=== PATIENT | male | born 1980 | race Two or more races ===

== ENCOUNTER 2024-12-16 01:27 | Inpatient (IN) | payer MEDICAID, SELFPAY ==
[2024-12-16] VITALS (12 sets, daily range): BP systolic 99–139; BP diastolic 61–98; PULSE 86–98; RESP 12–18; TEMP 36.7–37.6; O2SAT 93–99; BMI 28.3
--- NOTE | 2024-12-16 03:10 | EDRME_ITS ---
Rapid Medical Screening Exam RME Arrival date/time: 12/16/24 01:27 Chief Complaint: Medical Clearance Time Seen by Provider: 12/16/24 02:54 Vital signs: Vital Signs Temperature 98.7 F 12/16/24 01:46 Pulse Rate 90 12/16/24 01:46 Respiratory Rate 18 12/16/24 01:46 Blood Pressure 134/90 H 12/16/24 01:46 Pulse Oximetry (%) 96 12/16/24 01:46 Oxygen Delivery Method Room Air 12/16/24 01:46 Vital signs reviewed by provider: Yes RME Narrative: 44-year-old male presents to the ED via [employer] [place] [employer] for medical clearance for an elevated blood sugar of 342. Apparently he has been cited and released. Patient is complaining of right foot pain. A quick physical exam reveals right fourth toe with necrosis. Right foot is dusky in appearance with delayed capillary refill. I have greeted and performed a focused initial assessment of this patient. A comprehensive ED assessment and evaluation of the patient, analysis of all test results, and completion of the medical decision making process will be conducted by additional ED providers.
--- NOTE | 2024-12-16 03:15 | PC.NURSE ---
PT INTO ROOM 16 FROM LOBBY. FROM TRIAGE NOTE PT WAS BIB [employer] FOR [employer]PER[employer]YCEMIA MEDICAL CLEARANCE. PT WAS RELEASED BY PD AND LEFT IN ER LOBBY. PT PRESENTS TO THE ER DISHEVELED, COVERED IN URINE AND FECES. PT STATES HE WAS LAYING ON THE FLOOR IN FRONT OF A STORE, FEELING WEAK WHEN OFFICER ARRESTED HIM. PT STATES HE IS HOMELESS AND HAS NOT HAD AN APPETITE OR HAS BEEN DRINKING MUCH FLUIDS. PT WALKED WITH AN UNSTEADY GAIT, DENIES ALCOHOL OR DRUGS. PT PLACED ON CARDIAC MONITORING. VS TAKEN. IV PLACED. INFORMED OF PT'S UNSTEADY GAIT. BLACKED WOUND NOTED ON RIGHT FOURTH DIGIT TOE. PT STATES HE IS DM. PT [id number].
--- NOTE | 2024-12-16 03:15 | XR_ITS ---
Examination: Foot, right, 3 views Technique: AP, oblique, lateral views foot, 3 views Date and time of exam: December 16, 2024 at 0519 hours INDICATIONS: Nonhealing ulcer right foot FINDINGS: History amputation midportion proximal phalanx first digit Apparent bone production at the level of the distal phalanx fourth digit No sawyer cortical bone destruction Impression : No sawyer cortical bone destruction Consider MRI for without contrast follow-up to best assess for osteomyelitis, as clinically warranted
--- NOTE | 2024-12-16 03:17 | EDNOTE_ITS ---
ED Extremity Problem RME/HPI General Chief complaint: Medical Clearance Stated complaint: MEDICAL CLEARANCE Time Seen by Provider: 12/16/24 02:54 Arrival date/time: 12/16/24 01:27 RME / HPI RME / HPI Narrative: 44-year-old male presents to the ED via [employer] for medical clearance for an elevated blood sugar of 342. Apparently he has been cited and released. Patient is complaining of right foot pain. A quick physical exam reveals right fourth toe with necrosis. Right foot is dusky in appearance with delayed capillary refill. I have greeted and performed a focused initial assessment of this patient. A comprehensive ED assessment and evaluation of the patient, analysis of all test results, and completion of the medical decision making process will be conducted by additional ED providers. DR. MICHAEL MAIN ED EVALUATION: 44 y/o male with Hx of Type II DM BIB [facility] presents to ED c/o elevated blood sugar. Denies fever, nausea, and vomiting. Related Data Allergies Allergy/AdvReac Type Severity Reaction Status Date / Time No Known Allergies Allergy Verified 10/26/21 22:56 Review of Systems Review of Systems Systems Reviewed: All systems reviewed, normal except as documented Past Medical History Past Medical History ENDOCRINE: Positive Diabetes Mellitus Type 2 Social History SMOKING STATUS: Current some day smoker ED Exam Narrative Physical exam: GENERAL APPEARANCE: alert and oriented x 4, well-developed, well-nourished, no acute distress, patient appears to have poor hygeine VITALS: All vitals were reviewed and the pulse ox is 96% on room air, which is normal according to my interpretation. HEENT: Normocephalic, atraumatic; pupils equal, round, reactive to light; EOMI; mucous membranes pink, moist; oropharynx clear NECK: Supple LUNGS: CTABL; no wheezes, no rales, no rhonchi HEART: Regular rate, regular rhythm; normal S1, S2; no murmurs ABDOMEN: non distended; normal BS; soft, no tenderness, no guarding, no rebound; no masses, no organomegaly, no hernia BACK: no CVA tenderness EXTREMITIES: necrosis to plantar aspect of right 4th digit; ulceration to right 3rd digit; no edema NEUROLOGIC: awake; alert and oriented x4; cranial nerves II-XII grossly intact; no focal sensory or motor deficits PSYCHIATRIC: appropriate mood and affect SKIN: warm, dry, normal color; no rashes Course Quality Measures none Orders Category Date Time Status CT head/brain wo con Stat Exams 12/16/24 04:47 Taken XR foot comp RT min 3V Stat Exams 12/16/24 03:15 Taken A1C [Glycohemoglobin w (eAG)] Stat Lab 12/16/24 03:41 Completed Alcohol, Blood Medical Stat Lab 12/16/24 03:41 Completed Blood Culture (Lab) Stat Lab 12/16/24 03:41 Received CBC Stat Lab 12/16/24 03:41 Completed CK [Creatine Kinase] Stat Lab 12/16/24 03:41 Completed CMP [Comprehensive Metabolic Panel] Stat Lab 12/16/24 03:41 Completed Drug Screen,Urine Stat Lab 12/16/24 05:30 Received ESR [Sed Rate (ESR)] Stat Lab 12/16/24 03:41 Completed Lipase Stat Lab 12/16/24 03:41 Completed UA, C/S IF [Urinalysis, C/S if Indicated] Stat Lab 12/16/24 05:30 Completed Piper/Tazo 3.375 gm Premix [Zosyn] Med 12/16/24 04:27 Discontinued 3.375 gm in 50 ml IV X1 Piper/Tazo Inj [Zosyn Inj] 4.5 gm Med 12/16/24 03:14 Discontinued Sodium Chloride 0.9% (Pop) [NS 0.9% mini bag] 100 ml IV X1 Sodium Chloride 0.9% 1000 ml [Ns] 1,000 ml Med 12/16/24 04:46 Discontinued IV 999 mls/hr Sodium Chloride 0.9% 1000 ml [Ns] 1,000 ml Med 12/16/24 05:04 Active IV 999 mls/hr Vancomycin Inj 1,000 mg Med 12/16/24 03:13 Discontinued Sodium Chloride 0.9% 250 ml [Ns] 250 ml IV X1 Vancomycin Inj 1,000 mg Med 12/16/24 04:27 Active Sodium Chloride 0.9% 250 ml [Ns] 250 ml IV X1 Vital Signs Vital signs: Vital Signs Temperature 98.7 F 12/16/24 01:46 Pulse Rate 90 12/16/24 01:46 Respiratory Rate 18 12/16/24 01:46 Blood Pressure 134/90 H 12/16/24 01:46 Pulse Oximetry (%) 96 12/16/24 01:46 Oxygen Delivery Method Room Air 12/16/24 01:46 Extremity Problem MDM Narrative MDM Narrative:: Scribe Attestation: Karen Burch, am scribing for and in the presence of Dr. Michael. Provider Notation: Although this document has been carefully reviewed, there may still be some phonetic and other typographical errors.? These errors are purely grammatical due to imperfections in the software program and should not be construed in any way to? compromise the substance of the patient's medical care during this visit. Patient data External records reviewed:: [facility] [place] previous records (No recent ED records available for review.) Clinical information provided by:: patient Social determinants that could affect healthcare access:: alcohol use Patient has the following chronic illnesses:: Type II DM How is presenting disease/condition affected by chronic disease/condition?: exacerbated by Evaluation data The following diagnostics were reviewed and interpreted by me:: lab results and radiology exam(s) Lab and/or radiology exams considered but not ordered:: None Interpretation Summary: RADIOLOGY Right Foot X-Ray: Pending official radiology report. Head/Brain CT: Pending official radiology report. Medications / Prescriptions Medications or Prescriptions considered but not ordered:: None Medication administrations:: Medication Administration History Vancomycin HCl 1,000 mg/ (Sodium Chloride) 250 mls @ 150 mls/hr IV X1 ONE Stop: 12/16/24 06:06 Last Admin: 12/16/24 05:14 Dose: 150 mls/hr Documented By: JOSELINE Sodium Chloride (Ns) 1,000 mls @ 999 mls/hr IV .Q1H1M ONE Stop: 12/16/24 06:04 Last Admin: 12/16/24 05:13 Dose: 999 mls/hr Documented By: JOSELINE Discontinued Medications Vancomycin HCl 1,000 mg/ (Sodium Chloride) 250 mls @ 150 mls/hr IV X1 ONE Stop: 12/16/24 04:52 Last Admin: 12/16/24 03:23 Dose: Not Given Documented By: MAXWELL Non-Admin Reason: Cancelled by Provider Piperacillin Sod/Tazobactam (Sod 4.5 gm/ Sodium Chloride) 100 mls @ 200 mls/hr IV X1 ONE Stop: 12/16/24 03:43 Last Admin: 12/16/24 03:23 Dose: Not Given Documented By: MAXWELL Non-Admin Reason: Cancelled by Provider Piperacillin/Tazobactam/Dextrose (Zosyn) 3.375 gm in 50 mls @ 100 mls/hr IV X1 ONE Stop: 12/16/24 04:56 Last Admin: 12/16/24 05:13 Dose: 100 mls/hr Documented By: JOSELINE Sodium Chloride (Ns) 1,000 mls @ 999 mls/hr IV .Q1H1M ONE Stop: 12/16/24 05:46 Last Admin: 12/16/24 05:13 Dose: 999 mls/hr Documented By: JOSELINE See above Consultations Consultation(s) initiated? (list below): No Diagnosis Extremity Problem Differential Diagnosis: gout, cellulitis and other (Osteomyelitis) Most likely diagnosis given after review of the tests above:: AMS, Hyperglycemia, Osteomyelitis Admission Indicated Admission indicated?: not indicated Explain why admission is indicated or not indicated:: Pending UA and CT. Admission Request Was there a request for admission?: No Disposition Plan Disposition Plan: other (specify) (Signed-out to Dr. Fermin at 6 AM.) Discharge Plan Prescriptions/Referrals Referrals: No Primary/Family,Physician [Primary Care Provider] - In 1 week Problem List Clinical Impression: AMS (altered mental status), Hyperglycemia, Osteomyelitis Patient/Caregiver Discharge Instructions Print Language: Beninese
[2024-12-16 03:53] LABS: Basophils # (Auto) 0.0 Thou/mm3 (0.0-0.2); Basophils % (Auto) 0 % (0-2.5); Eosinophils # (Auto) 0.0 Thou/mm3 (0.0-0.5); Eosinophils % (Auto) 1 % (0-10); Hematocrit 30.1 % (41.0-53.0); Hemoglobin 11.2 g/dL (13.5-16.0); Immature Granulocytes Auto 0.03 Thou/mm3 (0.00-0.00); Lymphocytes # (Auto) 1.7 Thou/mm3 (1.0-4.8); Lymphocytes % (Auto) 20 % (10-50); Mean Corpuscular HGB Conc 37.2 g/dl (31.0-37.0); Mean Corpuscular Hemoglobin 29.0 pg (25.0-35.0); Mean Corpuscular Volume 78 fL (80-100); Monocytes # (Auto) 0.3 Thou/mm3 (0.0-0.8); Monocytes % (Auto) 4 % (0-12); Neutrophils # (Auto) 6.3 Thou/mm3 (1.8-7.7); Neutrophils % (Auto) 75 % (37-80); Nucleated Red Blood Cell # 0.00 Thou/mm3 (0.00-0.00); Nucleated Red Blood Cell % 0 /100 WBC (0); Platelet Count 367 Thou/mm3 (140-440); RDW Standard Deviation 34.0 fL (35.1-43.9); Red Blood Count 3.86 Miln/mm3 (4.50-5.90); White Blood Count 8.4 Thou/mm3 (3.8-10.6)
[2024-12-16 04:07] LABS: Sed Rate (ESR) 93 mm/hr (0-15)
[2024-12-16 04:34] LABS: Alanine Aminotransferase 17 U/L (10-49); Albumin, Serum 4.1 gm/dL (3.5-5.0); Albumin/Globulin Ratio 1.0 (1.2-2.2); Alcohol, Blood Medical < 3.0 mg/dL (0-10.0); Alkaline Phosphatase 117 U/L (46-116); Anion Gap 11 (7-16); Aspartate Amino Transferase 19 U/L (0-34); BUN/Creatinine Ratio 12 Ratio (12-20); Bilirubin,Total 0.5 mg/dL (0.3-1.2); Blood Urea Nitrogen 14 mg/dL (9-23); Calcium 9.3 mg/dL (8.3-10.6); Calcium (Corrected) 9.3 mg/dL (8.5-10.1); Carbon Dioxide 25.4 mMol/L (20.0-31.0); Chloride 93 mMol/L (98-107); Creatinine (Component) 1.2 mg/dL (0.6-1.3); Estimated Creatinine Clearance 71.7 mL/min (>60); Globulin 4.2 gm/dL (2.3-3.5); Glucose 383 mg/dL (74-106); Lipase 26 U/L (12-53); Osmolality,Calculated 275 (275-295); Potassium 4.1 mMol/L (3.4-5.1); Sodium 129 mMol/L (136-145); Total Protein 8.3 gm/dL (5.7-8.2); eGFR > 60 See Note
--- NOTE | 2024-12-16 04:47 | XR_ITS ---
Examination: CT brain head without contrast. 2-D sagittal coronal reconstructions Date and time of exam:December 16, 2024 0519 hours INDICATIONS: Onset altered mental status today CTDI: vol (mGy):84.4 DLP: (mGycm):1047 Technique: Multiple CT axial sections of the brain have been obtained, 5 mm slice thickness. Contrast has not been administered. 2-D sagittal, coronal reconstructions have been obtained Low dose protocols were performed. One or more of the following dose reduction techniques were used; automated exposure control, adjustment of the mA and/or KV according to patient size, use of iterative reconstruction technique. Findings: No significant ventricular enlargement. Intra-axial or extra-axial hemorrhage density is not seen. No mass effect or midline shift Basal cisterns are not remarkable. Fourth ventricle is midline. Cranial vault intact. Impression: Negative for acute hemorrhage, mass effect or midline shift
[2024-12-16 04:53] LABS: Glucose Estimated Average 338 mg/dL (80-131); Hemoglobin A1C 13.4 % Hgb (4.8-6.0)
[2024-12-16] MEDS: SODIUM CHLORIDE 0.9% 1000 ML 1,000 ML 999 ML IV ×2 (05:13)
[2024-12-16] MEDS: PIPER/TAZO 3.375 GM PREMIX 3.375 GM/50 ML BAG IV (05:13)
[2024-12-16] MEDS: Vancomycin Inj 1,000 MG in SODIUM CHLORIDE 0.9% 250 ML 250 ML 150 MG IV (05:14)
[2024-12-16 05:21] LABS: Creatine Kinase 112 U/L (34-171)
[2024-12-16 05:44] LABS: Collection Type, Urine Clean Catch; Squamous Epithelial Cell,Urine 0 /hpf (0-5)
[2024-12-16 05:48] LABS: Bilirubin,Urine Negative (Negative); Blood,Urine Trace (Negative); Clarity,Urine Clear (Clear/Hazy); Color,Urine Lt-Yellow (Lt Yel-Yel); Culture Indicated,Urine Not Indicated; Glucose, Urine 4+ (Negative); Ketones,Urine 1+ (Negative); Leukocyte Esterase,Urine Negative (Negative); Nitrite,Urine Negative (Negative); PH,Urine 6.0 (5.0-7.0); Protein,Urine Negative (Neg - Trace); RBC,Urine 14 /hpf (0-3); Specific Gravity,Urine 1.034 (1.001-1.035); Transitional Epi Cells,Urine 2 /hpf (0-5); Urobilinogen,Urine Negative mg/dL (0.0-1.0); WBC,Urine 1 /hpf (0-5)
--- NOTE | 2024-12-16 05:52 | PRELIM_ITS ---
CT scan of the head without intravenous contrast (axial sections with sagittal and coronal reformats). December 16, 2024 0519 hours Clinical History: AMS Findings: No evidence of intracranial hemorrhage, mass effect or midline shift. The ventricles and CSF spaces are unremarkable. The calvarium is unremarkable. The mastoid air cells and the visualized paranasal sinuses are clear. Impression: No evidence of intracranial hemorrhage, mass effect or midline shift. Report Electronically Signed By: Ricardo Prado 12/16/2024 5:52:14 AM [EST]
[2024-12-16 05:56] LABS: Amphetamine/Methamp Scrn,U Positive (Negative); Barbiturate Screen,Urine Negative (Negative); Benzodiazepines Screen,Urine Negative (Negative); Benzoylecgonine Screen, Ur Negative (Negative); Fentanyl Screen,Urine Negative (Negative); Opiate Screen,Urine Negative (Negative); THC Screen,Urine Negative (Negative)
--- NOTE | 2024-12-16 06:32 | PD.EDADDENDU ---
Emergency Room Addendum Addendum Narrative: 0600: Care assumed from Dr. Hoang, the previous shift emergency physician. Past medical, surgical, social and family history reviewed. Vitals and home medications reviewed. I will assume the care of the patient at this time, pending CT report and reassessment. Please refer to the emergency department record for history and examination from initial visit.?The following addendum documentation note is intended to reflect any pending information, findings, or radiology results not included in the patient?s initial chart. Nursing notes reviewed by me. Vital signs reviewed by me. [place] medical records reviewed by me. Patient was last evaluated here on 10/27/2021 for hyperglycemia. 0623: 44 year old male with history of diabetes, medication noncompliance, and methamphetamine use presented to the ED initially brought in by [facility] for medical clearance for incarceration. Patient states he used meth 3 days ago and since then has been awake. States yesterday I couldn't walk anymore and stopped at a gas station to rest and was arrested. States he has had difficulty walking for ~ 1 week. Per RN, while in the ED the patient had unsteady gait and was hypotensive 62/40 with MAP 48. Prior to start of my shift, the patient was given 2L of IV fluids, Zosyn, and Vancomycin for the diabetic foot wound. Blood pressure during my examination is 146/87 and HR 97. While standing the blood pressure is 73/53 and HR 99. On my examination, there is a diabetic foot ulceration to the right fourth toe. 0735: I spoke with resident Dr. Valentine working with Dr. Esteban. Discussed patients PMHx, HPI, ED course, exam findings, labs, and radiology results. The hospitalist agree to accept the patient for admission. 0814: I spoke with surgeon Dr. Soria. Discussed patients PMHx, HPI, ED course, exam findings, labs, and radiology results. She agrees to consult. DISPOSITION: Admit DIAGNOSIS: Diabetic foot wound, osteomyelitis, hyperglycemia RADIOLOGY Ordering Physician: Date of Service: Procedure(s): Accession Number(s): cc: ~ CT scan of the head without intravenous contrast (axial sections with sagittal and coronal reformats). December 16, 2024 0519 hours Clinical History: AMS Findings: No evidence of intracranial hemorrhage, mass effect or midline shift. The ventricles and CSF spaces are unremarkable. The calvarium is unremarkable. The mastoid air cells and the visualized paranasal sinuses are clear. Impression: No evidence of intracranial hemorrhage, mass effect or midline shift. Report Electronically Signed By: Ricardo Prado 12/16/2024 5:52:14 AM [EST]
[2024-12-16] MEDS: SODIUM CHLORIDE 0.9% 500 ML 500 ML 999 ML IV ×2 (08:34→19:42)
[2024-12-16] MEDS: DOXYCYCLINE 100 MG TABLET PO ×2 (08:51→20:42)
--- NOTE | 2024-12-16 10:03 | PD.SURCONS ---
HPI Consult details History of present illness: 44M with DM who was brought to ER by PD apparently for loitering. Pt was having pain of the right foot which he reported began 1 week ago. Initially in ER pt was hypotensive but that has now improved with IVF. He has normal WBC but A1c 13.4 and Xray negative for osteomyelitis Review of Systems Review of Systems ROS Unobtainable: All systems reviewed & no additional complaints except as documented Meds Home Medications and Allergies Allergies Allergy/AdvReac Type Severity Reaction Status Date / Time No Known Allergies Allergy Verified 10/26/21 22:56 Exam Vital Signs Temp Pulse Resp BP Pulse Ox O2 Del Method 98.9 F 90 13 139/91 H 98 Room Air 12/16/24 05:28 12/16/24 09:01 12/16/24 09:01 12/16/24 09:01 12/16/24 09:01 12/16/24 09:01 Constitutional Constitutional: no acute distress Routine Respiratory Exam Respiratory: Present no resp distress Routine Extremities Exam Comments: right fourth toe with mild erythema at the dorsal aspect, no fluctuance, necrotic ulcer of the plantar aspect Results Results: Laboratory Laboratory results: results reviewed Results: Imaging Imaging narrative: Foot xray reviewed Assessment & Plan Plan 44M with DMII, A1c 13.4 presenting with an ulcer of the right fourth toe. As there is no osteomyelitis or signs of abscess he does not require surgical intervention but will benefit from abx and wound care Please reconsult as needed
--- NOTE | 2024-12-16 10:15 | PC.NURSE ---
ATTEMPTED TO CALL REPORT AND NURSE UNAVAILABLE
[2024-12-16] MEDS: INSULIN LISPRO (AdmeLOG) 1 UNIT/0.01 ML UNIT SC ×2 (12:17→20:42)
--- NOTE | 2024-12-16 14:42 | ESHP_ITS ---
<Statement entered by Antonio Valentine MD - 12/16/24 15:51> In summary: 44-year-old homeless male, with PMHx of poorly controlled diabetes, medication noncompliance, METHAMPHETAMINE use who was brought to the ED by police with altered mental status. Admitted for diabetic foot ulcer/abscess of right foot requiring IV ANTIBIOTICS. CXR was negative for osteomyelitis. Aseptic on presentation. No surgical intervention from general surgery perspective. Will continue with IV ANTIBIOTICS. Additionally, he had hyperosmotic hyponatremia, corrected sodium 134, GLUCOSE 383, A1c 13.4. He will need aggressive glycemic management outpatient, however, may be difficult given homelessness situation. Case was discussed with attending physician. Antonio Valentine DO PGY II This document was transcribed using voice recognition technology. Minor inaccuracies may be present. Documentation for date of: 12/16/24 HPI History of Present Illness Chief complaint: Altered mental status History of present illness: A 44 year old male with a pmh of diabetes, medical noncompliance, and methamphetamine use presents for altered mental status. He was also found to have an elevated blood sugar, weakness, and foot pain. He confirms feeling some confusion this morning but that has resolved. As for the foot pain, he has had a 3/10 pain in his right foot when he walks, and a generalized weakness on admission that he states is currently resolving. Additionally, he confirms his last methamphetamine use was 3 days ago and states his route of ingestion is smoking. He denies any fevers, chills, needle use, chest pain, or sob. ED Course:vitals Temp: 98.7 HR: 90 RR: 18 BP 134/90 SPO2: 96 Physical exam was normal aside from necrosis to the plantar aspect of right 4th digit; ulceration to right 3rd digit. Labs found a Hgb of 11.2, Hct 20.1, Cl 93, serum glucose 383, A1c 13.4, Alk phos 117, total protein 8.3, Globulin 4.2, UA: 4+ glu, 1+ Ketones, 14 RBC Urine tox: positive for amphetamine Imaging: Foot xray: No sawyer cortical bone destruction, History amputation midportion proximal phalanx first digit, Apparent bone production at the level of the distal phalanx fourth digit Head CT:Negative for acute hemorrhage, mass effect or midline shift Patient was given 3.375 g zosyn, NS 1L fluid bolus x2, NS 500mls bolus, Vancomycin 1g, Doxycycline 100mg BID, pantaprazole 40 mg IVP qday Review of Systems Review of Systems Systems Reviewed: All systems reviewed, normal except as documented Past Medical History Past Medical History ENDOCRINE: Positive Diabetes Mellitus Type 2 (On insulin) Social History SMOKING STATUS: Never smoker SUBSTANCE USE: amphetamines SUBSTANCE LAST USED: days (ago) (3) ALCOHOL: Never HOUSING: Homeless Exam Vital Signs Temp Pulse Resp BP Pulse Ox O2 Del Method 98.5 F 96 17 126/86 H 98 Room Air 12/16/24 11:59 12/16/24 11:59 12/16/24 11:59 12/16/24 11:59 12/16/24 11:59 12/16/24 11:59 Narrative Exam General: A&O x4, NAD, HEENT: Normocephalic, atraumatic, moist mucous membranes Cardio: Normal S1, S2, No murmurs rubs or gallops, Pulm:Lungs clear to auscultation bilaterally, no wheezes, crackles Abdominal:Abdomen is soft, nontender to palpation with no guarding or rigidity MSK: necrosis to plantar aspect of right 4th digit; ulceration to right 3rd digit; no edema, Normal ROM Neuro: A&O x4, cranial nerves 2-12 grossly intact with no focal deficits Results: Labs 12/17/24 04:43 12/17/24 04:43 Labs: Short CBC 12/16/24 Range/Units 03:41 WBC 8.4 (3.8-10.6) Thou/mm3 Hgb 11.2 L (13.5-16.0) g/dL Hct 30.1 L (41.0-53.0) % Plt Count 367 (140-440) Thou/mm3 BMP 12/16/24 03:41 Sodium 129 L Potassium 4.1 Chloride 93 L Carbon Dioxide 25.4 BUN 14 Creatinine 1.2 Glucose 383 H Calcium 9.3 Cardiac Enzymes 12/16/24 Range/Units 03:41 Total Creatine Kinase 112 (34-171) U/L Liver Function 12/16/24 Range/Units 03:41 Total Bilirubin 0.5 (0.3-1.2) mg/dL AST 19 (0-34) U/L ALT 17 (10-49) U/L Alkaline Phosphatase 117 H (46-116) U/L Albumin 4.1 (3.5-5.0) gm/dL Urine 12/16/24 Range/Units 05:30 Urine Color Lt-Yellow (Lt Yel-Yel) Urine Clarity Clear (Clear/Hazy) Urine pH 6.0 (5.0-7.0) Ur Specific [place] 1.034 (1.001-1.035) Urine Protein Negative (Neg - Trace) Urine Glucose (UA) 4+ A (Negative) Quality Measures Quality Measures none Medications Home Medications and Allergies Home Medications ?Medication ?Instructions ?Recorded ?Confirmed ?Type sulfamethoxazole 800 1 tab PO Q12H 12/16/2412/16 History mg-trimethoprim 160 mg tablet Allergies Allergy/AdvReac Type Severity Reaction Status Date / Time No Known Allergies Allergy Verified 10/26/21 22:56 Visit Medications Acetaminophen (Acetaminophen 325 Mg Tablet) 650 mg PO Q6H PRN PRN Reason: PAIN SCALE 1-3 (mild Stop: 01/15/25 08:14 Acetaminophen (Acetaminophen 325 Mg Tablet) 650 mg PO Q6H PRN PRN Reason: Fever >100.4 Stop: 01/15/25 08:14 Hydrocodone Bitart/Acetaminophen (Hydrocodone/Apap 10/325 Tab) 1 tab PO Q4HR PRN PRN Reason: PAIN SCALE 7-10 (Severe Stop: 12/21/24 08:14 Dextrose (Dextrose 50%-Water Inj 50 Ml Syringe) 25 ml IV Q15MIN PRN PRN Reason: BG 50-70 responsive npo pt Stop: 01/15/25 08:22 Dextrose (Dextrose 50%-Water Inj 50 Ml Syringe) 50 ml IV Q15MIN PRN PRN Reason: BG <50 OR BG <70 & pt unresponsive Stop: 01/15/25 08:22 Doxycycline Hyclate (Doxycycline 100 Mg Tablet) 100 mg PO BID [facility] Stop: 12/23/24 08:59 Last Admin: 12/16/24 08:51 Dose: 100 mg Glucagon (Glucagon Inj 1 Mg Vial) 1 mg IM Q15MIN PRN PRN Reason: BG <70, and no IV access Heparin Sodium (Porcine) (Heparin Sod Inj 5000 Unit/Ml Vial) 5,000 unit SC Q8HR [facility] Stop: 12/30/24 21:59 Insulin Human Lispro (Insulin Lispro (Admelog) 1 Unit/0.01 Ml Unit) 0 unit SC ACHS [facility]; Protocol Stop: 01/15/25 11:29 Last Admin: 12/16/24 12:17 Dose: 3 unit Ondansetron HCl (Ondansetron Inj 2 Mg/Ml Inj 2 Ml) 4 mg IVP Q6H PRN; Protocol PRN Reason: NAUSEA OR VOMITING Stop: 01/15/25 08:14 Oxycodone/Acetaminophen (Oxycodone/Apap 5/325 Tablet) 1 tab PO Q6H PRN PRN Reason: PAIN SCALE 4-6 (Moderate Stop: 12/21/24 08:14 Pantoprazole Sodium (Pantoprazole Inj 40 Mg Vial) 40 mg IVP QDAY MAX Stop: 01/15/25 08:59 Last Admin: 12/16/24 08:52 Dose: 40 mg Discontinued Medications Vancomycin HCl 1,000 mg/ (Sodium Chloride) 250 mls @ 150 mls/hr IV X1 ONE Stop: 12/16/24 04:52 Last Admin: 12/16/24 03:23 Dose: Not Given Piperacillin Sod/Tazobactam (Sod 4.5 gm/ Sodium Chloride) 100 mls @ 200 mls/hr IV X1 ONE Stop: 12/16/24 03:43 Last Admin: 12/16/24 03:23 Dose: Not Given Vancomycin HCl 1,000 mg/ (Sodium Chloride) 250 mls @ 150 mls/hr IV X1 ONE Stop: 12/16/24 06:06 Last Infusion: 12/16/24 07:15 Dose: Infused Piperacillin/Tazobactam/Dextrose (Zosyn) 3.375 gm in 50 mls @ 100 mls/hr IV X1 ONE Stop: 12/16/24 04:56 Last Infusion: 12/16/24 05:57 Dose: Infused Sodium Chloride (Ns) 1,000 mls @ 999 mls/hr IV .Q1H1M ONE Stop: 12/16/24 05:46 Last Infusion: 12/16/24 06:29 Dose: Infused Sodium Chloride (Ns) 1,000 mls @ 999 mls/hr IV .Q1H1M ONE Stop: 12/16/24 06:04 Last Infusion: 12/16/24 06:29 Dose: Infused Sodium Chloride (Ns) 500 mls @ 999 mls/hr IV .Q31M ONE Stop: 12/16/24 07:05 Last Infusion: 12/16/24 08:54 Dose: Infused Assessment & Plan Plan Assessment and plan A 44 yo male with a pmh of diabetes, medication non-compliance and amphetamine use presents for altered mental status. He was also noted to have right foot pain concerning for a foot ulcer, and hyperglycemia. #Necrotic foot ulcer #Cellulitis Patient has a necrotic foot ulcer of the plantar aspect of the right 4th digit likely secondary to sequelae of poorly controlled diabetes Patient is afebrile with no leukocytosis Imaging was negative for osteomyelitis ED consulted general surgery and they recommend that surgical intervention is not required Patient has completed 3.375 g zosyn, vancomycin 1g IV Plan: -ceftriaxone 1gm IV Qday (12/16- -Doxycycline 100mg po BID (12/16- -Wound care consulted -Pain management -monitor for infection #Type 2 Diabetes Mellitus -serum blood sugar is 383 on admission, A1c is 13.4 -hyperosmotic hyponatremia, corrected sodium 134 -Patient mentions previously taking insulin 3 times a day, but is unsure of the exact dose and type Plan: -SSI -Hypoglycemic protocol in place Health Maintenance: Disposition:[facility] DVT Prophylaxis: Heparin Q12 GI Prophylaxis: Pantaprazole 40mg Diet: Regular CODE STATUS: Full Code Case and Plan discussed with my attending physician, Dr. Esteban, and my senior resident, Dr. Meme Rock, [facility] Attending Provider Attestation/Addendum I have examined the patient, reviewed labs and imaging findings, discussed the case with the resident(s), and reviewed entered orders. I agree with the plan of care as outlined in this note, with these additional summaries/recommendations: After examination of the patient and review of the clinical data, I feel that this patient needs admission to the hospital for further treatment and evaluation. Patient is a 44-year-old male with a history of diabetes mellitus type 2 and homelessness who was brought in by [place] [employer]. Patient was found to have infected diabetic wound with minimal cellulitis. Start IV antibiotics and order wound care. Patient was evaluated by general surgery and no surgical intervention needed at this time. Start basal and bolus insulin for uncontrolled diabetes mellitus type 2. A1c in the 13 range. Order for diabetic education. Diabetic diet. Patient is currently homeless and aids social worker consult for resources. Patient is somnolent but answering questions appropriately. We will do additional counseling once mentation is more improved and remove Vaughn catheter. Patient showed understanding of the plan. Please see residents note for additional details and management. Dr. Carlito MD
[2024-12-16] MEDS: cefTRIAXone/D5w 1gm IV premix 1 GM/50 ML BAG IV (15:46)
--- NOTE | 2024-12-16 19:26 | PC.NURSE ---
Addendum entered by Marcelo Keller RN 12/16/24 20:34: blood pressure after 500ml NS bolus is BP 111/70 P 95. Addendum entered by Marcelo Keller RN 12/16/24 19:47: Dr. Eubanks ordered a 500ml bolus of NS. RN administered. Original Note: Dr. Eubanks made aware that patient is hypotensive during 1900 rounds. PRECISION MECHANICAL INSTRUMENT MAKER checked vitals and got a blood pressure of 83/42, pulse of 81. PRECISION MECHANICAL INSTRUMENT MAKER checked it again and got a blood pressure of 84/51, pulse of 81. RN checked the blood pressure again about 10 minutes later and blood pressure was 99/61 with a pulse of 91. RN recommended midodrine to Dr. Eubanks, but Dr. Eubanks said he will look into the chart and determine what orders to be put in.
[2024-12-16] MEDS: HEPARIN SOD INJ 5000 UNIT/ML VIAL SC (21:02)
[2024-12-17] VITALS: BP 95/58; PULSE 85; RESP 18; TEMP 37.1; O2SAT 99
[2024-12-17 04:00] VITALS: BP 111/73; PULSE 90; RESP 18; TEMP 37; O2SAT 99
[2024-12-17] MEDS: HEPARIN SOD INJ 5000 UNIT/ML VIAL SC (05:08)
[2024-12-17 06:14] LABS: Basophils # (Auto) 0.0 Thou/mm3 (0.0-0.2); Basophils % (Auto) 0 % (0-2.5); Eosinophils # (Auto) 0.1 Thou/mm3 (0.0-0.5); Eosinophils % (Auto) 1 % (0-10); Hematocrit 27.2 % (41.0-53.0); Hemoglobin 9.4 g/dL (13.5-16.0); Immature Granulocytes Auto 0.01 Thou/mm3 (0.00-0.00); Lymphocytes # (Auto) 1.8 Thou/mm3 (1.0-4.8); Lymphocytes % (Auto) 39 % (10-50); Mean Corpuscular HGB Conc 34.6 g/dl (31.0-37.0); Mean Corpuscular Hemoglobin 28.7 pg (25.0-35.0); Mean Corpuscular Volume 83 fL (80-100); Monocytes # (Auto) 0.2 Thou/mm3 (0.0-0.8); Monocytes % (Auto) 5 % (0-12); Neutrophils # (Auto) 2.5 Thou/mm3 (1.8-7.7); Neutrophils % (Auto) 54 % (37-80); Nucleated Red Blood Cell # 0.00 Thou/mm3 (0.00-0.00); Nucleated Red Blood Cell % 0 /100 WBC (0); Platelet Count 312 Thou/mm3 (140-440); RDW Standard Deviation 37.5 fL (35.1-43.9); Red Blood Count 3.27 Miln/mm3 (4.50-5.90); White Blood Count 4.6 Thou/mm3 (3.8-10.6)
[2024-12-17 07:13] LABS: Alanine Aminotransferase 9 U/L (10-49); Albumin, Serum 3.3 gm/dL (3.5-5.0); Albumin/Globulin Ratio 1.0 (1.2-2.2); Alkaline Phosphatase 91 U/L (46-116); Anion Gap 9 (7-16); Aspartate Amino Transferase 11 U/L (0-34); BUN/Creatinine Ratio 13 Ratio (12-20); Bilirubin,Total 0.3 mg/dL (0.3-1.2); Blood Urea Nitrogen 12 mg/dL (9-23); Calcium 8.8 mg/dL (8.3-10.6); Calcium (Corrected) 9.4 mg/dL (8.5-10.1); Carbon Dioxide 26.3 mMol/L (20.0-31.0); Chloride 104 mMol/L (98-107); Creatinine (Component) 0.9 mg/dL (0.6-1.3); Estimated Creatinine Clearance 103.9 mL/min (>60); Globulin 3.4 gm/dL (2.3-3.5); Glucose 247 mg/dL (74-106); Magnesium 1.6 mg/dL (1.6-2.6); Osmolality,Calculated 285 (275-295); Phosphorous 2.5 mg/dL (2.4-5.1); Potassium 4.6 mMol/L (3.4-5.1); Sodium 139 mMol/L (136-145); Total Protein 6.7 gm/dL (5.7-8.2); eGFR > 60 See Note
[2024-12-17 08:00] VITALS: BP 125/79; PULSE 84; RESP 16; TEMP 36.4; O2SAT 99
[2024-12-17] MEDS: DOXYCYCLINE 100 MG TABLET PO (08:53)
[2024-12-17] MEDS: INSULIN LISPRO (AdmeLOG) 1 UNIT/0.01 ML UNIT SC ×2 (08:53→11:29)
[2024-12-17] MEDS: INSULIN GLARGINE (Lantus) 5 UNIT/0.05 ML (PER 5 UNITS) 4 UNIT SC (08:53)
[2024-12-17] MEDS: cefTRIAXone/D5w 1gm IV premix 1 GM/50 ML BAG IV (08:53)
--- NOTE | 2024-12-17 11:21 | PC.SS ---
SS met with patient who is alert/oriented. Patient was able to verify demographics. Patient spoke both [place] Rican/Serbian. Serbian is preferred. Medical Leader present. Patient confirmed he is homeless. He was living on the streets. He has never been at a skilled nursing here. Patient is open to going to a homeless skilled nursing. Patient is independent with ADL's. No DME used. Patient was admitted for right foot ulcer. Patient has dx: Diabetes. He's had this for 10 years now. Patient states he does not have a glucometer machine or diabetic meds. Patient is positive for meth. No prior drug rehab in patient or out patient. Patient states he was recently at [facility] 15 days ago. Patient has not seen a p.c.p. in over 2 years now. Patient states his alt medical decision maker is his sister, Yaa Blackwood and lives in [place]. Patient does not have a phone number for her. He also has a brother, Jorge Cotton, who lives in [place]. Patient does not have a phone number for him either. SS provided a list of community resources for patient. Patient has [facility] [employer]. Updated to follow up with permanent coverage through [facility]. Patient was provided up to 30 days to follow up with application. SS provided clothing and bus passes as well as a sack lunch to be provided. Patient has dc orders. SS will coordinate an [employer] transport for 1p.m. and updated nursing. SS verified patient should not have any out of pocket costs for his medications. Patient does not receive any income or FS. [facility] [address]. SS updated patient that this is not guaranteed. First come first serve and they will need to do an in person assessment. If patient does not get into program, he will be following up with the [facility] at 8p.m. Patient agreeable with d/c plans.
[2024-12-17 12:00] VITALS: BP 146/97; PULSE 90; RESP 16; TEMP 36.2; O2SAT 99
--- NOTE | 2024-12-17 13:25 | PD.RESDS ---
Planned Discharge Date 12/17/24 DS: Providers Provider Date of admission: 12/16/24 16:21 Primary care physician: Physician No Primary/Family Admitting Provider: Mc Esteban MD Attending Provider on Admission: Mc Esteban MD Consults: 12/16/24 08:24 Referral Registered Dietitian Routine Comment: [employer] control 12/16/24 09:52 Referral OP Wound Healing Dept Routine Comment: Attending Provider on DC: Mc Esteban MD Discharging Provider: Mc Esteban MD Anticipated date of discharge: 12/17/24 DS: Diagnosis Problem List Completed Was Problem List Reviewed/Reconciled?: Yes Hospital Course Hospital Course Hospital course: A 44 year old male with a pmh of diabetes, medical noncompliance, and methamphetamine use presents for altered mental status. He was also found to have an elevated blood sugar, weakness, and foot pain, and was admitted for a necrotic foot wound. ED Course: vitals Temp: 98.7, HR: 90, RR: 18, BP 134/90, SPO2: 96 Physical exam was normal aside from necrosis to the plantar aspect of right 4th digit; ulceration to right 3rd digit. Labs found a Hgb of 11.2, Hct 20.1, Cl 93, serum glucose 383, A1c 13.4, Alk phos 117, total protein 8.3, Globulin 4.2, UA: 4+ glu, 1+ Ketones, 14 RBC Urine tox: positive for amphetamine Imaging: Foot xray: No sawyer cortical bone destruction, History amputation midportion proximal phalanx first digit, Apparent bone production at the level of the distal phalanx fourth digit Head CT:Negative for acute hemorrhage, mass effect or midline shift Patient was given 3.375 g zosyn, NS 1L fluid bolus x2, NS 500mls bolus, Vancomycin 1g, Doxycycline 100mg BID, pantaprazole 40 mg IVP qday General surgery was consulted from ED and they recommended nonsurgical management Hospital Course: The patients necrotic foot ulcer and cellulitis was managed with Cef 1g IV 12/16-12/17 and doxycycline 100mg po BID. We also consulted wound care who dressed the wound with betadine, a 4x4 wrap, and gauze wrap. He is asymptomatic, with no foot pain, fevers, chills, or leukocytosis upon discharge. The patient's T2DM was managed with SSI, and the patient is stable and asymptomatic upon discharge. Problem list ##Necrotic foot ulcer #Cellulitis #Type 2 Diabetes Mellitus Discharge Instructions: Take medicines as prescribed Follow up with your PCP within one week Continue with wound care I am prescribing you Doxycycline, take this medicine as this is your antibiotic Return to ER if your symptoms worsen or return Please see us at the [facility] if you do not have a PCP or if you wish. [facility] [address] [place] [address] Time Spent with Patient Time attestation: Total time spent providing and/or coordinating discharge services: Time spent: Greater than 30 minutes Exam Vital Signs Temp Pulse Resp BP Pulse Ox O2 Del Method 97.2 F 90 16 146/97 H 99 Room Air 12/17/24 12:00 12/17/24 12:00 12/17/24 12:00 12/17/24 12:00 12/17/24 12:00 12/17/24 12:00 Narrative Exam General: A&O x4, NAD, HEENT: Normocephalic, atraumatic, moist mucous membranes Cardio: Normal S1, S2, No murmurs rubs or gallops, Pulm:Lungs clear to auscultation bilaterally, no wheezes, crackles Abdominal:Abdomen is soft, nontender to palpation with no guarding or rigidity MSK: right foot 4th digit ulcer is wrapped in gauze, nontender, normal ROM in bilateral upper and lower extremity Neuro: A&O x4, cranial nerves 2-12 grossly intact with no focal deficits Discharge Plan Plan Patient Disposition: Xfer Other Disposition Comment[facility] Patient condition on transfer: Stable Care Plan Goals: Discharge Instructions: Take medicines as prescribed Follow up with your PCP within one week Continue with wound care I am prescribing you Doxycycline, take this medicine as this is your antibiotic Return to ER if your symptoms worsen or return Please see us at the [facility] if you do not have a PCP or if you wish. [facility] [address] [place] [address] Prescriptions/Referrals Prescriptions/Med Rec: New metformin 1,000 mg tablet 1,000 mg PO BID 30 Days Qty: 60 0RF Rx Instructions: Take one tablet by mouth twice a day insulin glargine [Basaglar KwikPen U-100 Insulin] 100 unit/mL (3 mL) insulin pen 10 unit subcut QAM 30 Days Qty: 3 0RF Rx Instructions: Inject 10 units once a day as directed doxycycline hyclate 100 mg tablet 100 mg PO BID 6 Days Qty: 12 0RF Rx Instructions: Take one tablet by mouth twice a day Ozempic 0.25 mg or 0.5 mg (2 mg/3 mL) pen injector 0.25 mg subcut QWEEK 30 Days Qty: 3 0RF Rx Instructions: Use as directed (DME) insulin syringe-needle U-100 [CareTouch Insulin Syringe] 0.5 mL 30 gauge x 5/16 syringe See Rx Instructions .Route Qty: 100 2RF Rx Instructions: As directed Discontinued sulfamethoxazole-trimethoprim 800-160 mg tablet 1 tab PO Q12H Referrals: No Primary/Family,Physician [Primary Care Provider] - Patient/Caregiver Discharge Instructions Education Materials: High Blood Sugar (Hyperglycemia), Diabetes Carbs Fats Protein Print Language: Armenian Stand Alone Forms: Hattie Award Info., Patient Portal Info Letter Discharge Order Discharge Orders: Discharge (Routine); Ordered 12/17/24 Ordered By: Antonio Valentine Quality Discharge Quality Measures VTE prophylaxis (Heparin Q12) Attestestation MD Attestation I have examined the patient, reviewed labs and imaging findings, discussed the case with the resident(s), and reviewed entered orders. I agree with the plan of care as outlined in this note. Time Spent: [address] Carlito MD
== END 2024-12-17 13:15 | disposition other institution (70) | DRG 344 ==
LOC: SERX 08:29 → SERHOLD 09:01 → S3NX 10:42
PROVIDERS: Emergency Medicine; Physician Assistant; Admitting Provider Student in an Organized Health Care Education/Training Program; Emergency Provider Emergency Medicine; Visit Provider Student in an Organized Health Care Education/Training Program
DX: E11.621 Type 2 diabetes mellitus with foot ulcer (principal); L03.115 Cellulitis of right lower limb; E87.1 Hypo-osmolality and hyponatremia; E11.65 Type 2 diabetes mellitus with hyperglycemia; F17.200 Nicotine dependence, unspecified, uncomplicated; L02.611 Cutaneous abscess of right foot; F15.90 Other stimulant use, unspecified, uncomplicated; E11.69 Type 2 diabetes mellitus with other specified complication; M86.9 Osteomyelitis, unspecified; Z91.148 Patient's other noncompliance with medication regimen for other reason; Z59.02 Unsheltered homelessness; Z89.419 Acquired absence of unspecified great toe; L97.514 Non-pressure chronic ulcer of other part of right foot with necrosis of bone
CPT/HCPCS: 36415; 70450; 73630; 80053; 80307; 80320; 81001; 82010; 82550; 83036; 83605; 83690; 83735; 84100; 84145; 85025; 85652; 86140; 87040; 87081; 96365; 96366; 96372; 96375; J0696; J1644; J1815; J2470; J2543; J3370; J7030; J7050; J7999; A9270; G0480